=== PATIENT | female | born 1930 | race Caucasian/White ===

== ENCOUNTER 2016-10-12 10:59 | Emergency (ER) | payer MEDICARE ==
[~2016-10-12] VITALS: Ht 167.6 cm; Wt 61.0 kg
[2016-10-12 11:39] LABS: BASOPHILS % (AUTO) 1 % (0-2); EOSINOPHILS # (AUTO) 0.1 10^3uL; EOSINOPHILS % (AUTO) 2 % (0-4); LYMPHOCYTES # (AUTO) 1.3 X10^3; MEAN CORPUSCULAR HEMOGLOBIN 29.9 PG (26.0-34.0); MEAN CORPUSCULAR HGB CONC 33.2 g/dL (31.0-37.0); MEAN CORPUSCULAR VOLUME 90 FL (80-100); MEAN PLATELET VOLUME 9.2 FL (6.0-9.5); MONOCYTES # (AUTO) 0.6 X10^3; MONOCYTES % (AUTO) 13 % (3-11); NEUTROPHILS # (AUTO) 2.3 X10^3; NEUTROPHILS % (AUTO) 54 % (51-67); PLATELET COUNT 264 10^3uL (150-450); WHITE BLOOD COUNT 4.31 10^3uL (4.0-11.0)
[2016-10-12 11:56] LABS: ALBUMIN 3.5 g/dL (3.4-5.0); ANION GAP 10.1 MEQ/L (3-15); CALCULATED IONIZED CALCIUM 3.8 mg/dL (3.8-4.6); TOTAL PROTEIN 7.4 g/dL (6.4-8.5)
[2016-10-12 12:03] LABS: INFLUENZA VIRUS TYPE A ANTIBOD Negative (NEGATIVE); INFLUENZA VIRUS TYPE B ANTIBOD Negative (NEGATIVE)
[2016-10-12 12:32] LABS: BILIRUBIN,URINE Negative (Negative); CLARITY,URINE Clear; COLOR,URINE Yellow; GLUCOSE, URINE (UA) Negative (Negative); LEUKOCYTE ESTERASE ,URINE Trace (Negative); PH,URINE 7.5 (5.0 - 8.0); UROBILINOGEN,URINE 0.2 mg/dL (0.2-1.0)
[2016-10-12 12:50] LABS: AMPHETAMINE SCREEN, URINE Negative (Negative); CANNABINOID SCREEN, URINE Negative (Negative); METHAMPHETAMINE SCREEN URINE S NEGATIVE (NEGATIVE); OPIATE SCREEN URINE Negative (Negative); RBC,URINE None Seen /HPF; URINE CENTRIFUGED VOLUME 12 mL
[2016-10-12 12:51] LABS: PROPOXYPHENE STAT NEGATIVE (NEGATIVE)
[2016-10-12 13:22] VITALS: BP 174/67
== END 2016-10-12 13:25 | disposition home or self-care (01) ==
LOC: EDUNIT# 10:59 → ED 11:01
DX: J44.1 Chronic obstructive pulmonary disease with (acute) exacerbation (principal); L89.159 Pressure ulcer of sacral region, unspecified stage; I11.0 Hypertensive heart disease with heart failure; I50.9 Heart failure, unspecified; R82.99 Other abnormal findings in urine
CPT/HCPCS: 36415; 71010; 80053; 81003; 81015; 82803; 83605; 83880; 84443; 84484; 85025; 85610; 86140; 87088; 87502; 93005; 99284; G0478; 80307; 93010; 99285

== ENCOUNTER → 2016-10-12 | Outpatient (CLI) | payer MEDICARE | LOC: EMS 10:45 | PROVIDERS: ATTEND Family Medicine | DX: R06.00 Dyspnea, unspecified (principal) ==

== ENCOUNTER 2016-10-13 16:22 | Inpatient (IN) | payer MEDICARE ==
[~2016-10-13] VITALS: Ht 167.6 cm; Wt 64.1 kg
[2016-10-13 16:30] VITALS: BP 186/62
--- NOTE | 2016-10-13 16:30 | NUR ---
Pt admitted to 315 via w/c accompanied by Alvaro Wilcox, RUMA and friend. Skin warm, dry, intact. Resprs labored, even on RA. Sats upon arrival 92% on RA. 2L NC placed per Dr Whelan for comfort. See admission database for assessment info.
[2016-10-13] MEDS ORDERED: ONDANSETRON 4 MG (ZOFRAN) ORAL DISSOLVE TAB PO PRN (16:55)
[2016-10-13] MEDS ORDERED: MAGNESIUM HYDROXIDE 80MG/ML (MILK OF MAGNESIA) 30 ML UDC PO PRN (16:55)
[2016-10-13] MEDS ORDERED: POLYETHYLENE GLYCOL 17 GM (MIRALAX) PACKET PO PRN ×2 (16:55→18:30)
[2016-10-13] MEDS ORDERED: cefTRIAXone 1 GM (ROCEPHIN) VIAL IM SCH (17:00)
[2016-10-13] MEDS ORDERED: ALBUTEROL 0.083% NEB SOLUTION 2.5 MG/3 ML VIAL INH PRN (17:00)
[2016-10-13 17:23] LABS: MEAN CORPUSCULAR HEMOGLOBIN 30.4 PG (26.0-34.0); MEAN CORPUSCULAR HGB CONC 33.1 g/dL (31.0-37.0); MEAN CORPUSCULAR VOLUME 92 FL (80-100); MEAN PLATELET VOLUME 8.9 FL (6.0-9.5); PLATELET COUNT 292 10^3uL (150-450); WHITE BLOOD COUNT 7.78 10^3uL (4.0-11.0)
[2016-10-13] MEDS ORDERED: LIDOCAINE PF 1% (XYLOCAINE) 2 ML VIAL INJ PRN (17:30)
[2016-10-13] MEDS ORDERED: cefTRIAXone SODIUM 1,000 MG in SODIUM CHLORIDE 50 ML IV SCH ×2 (17:30→18:50)
[2016-10-13 17:36] LABS: BAND NEUTROPHILS % 1 % (0-6); EOSINOPHILS % 1 % (0-4); LYMPHOCYTES # 0.7 #; MONOCYTES # 0.5 #; MONOCYTES % 7 % (3-11); RBC MORPH NORMAL (NORMAL); SEGMENTED NEUTROPHILS % 82 % (51-67); TOTAL CELLS COUNTED 100
[2016-10-13 17:39] LABS: MAGNESIUM* 1.9 mg/dL (1.6-2.3); PHOSPHORUS 3.6 mg/dL (2.4-4.9)
[2016-10-13] MEDS: ALBUTEROL/IPRATROPIUM 3MG-0.5MG/3ML (DUONEB) NEB VIAL INH SCH ×2 (17:39→23:17)
--- NOTE | 2016-10-13 17:48 | NUR ---
Medication history completed using Dr. Ulloa's clinic records and pharmacy dispensing records.
[2016-10-13] MEDS ORDERED: SODIUM CHLORIDE FLUSH 3 ML SYR IV SCH (17:50)
--- NOTE | 2016-10-13 18:45 | NUR ---
Pt sitting in bed playing [employer] at this time. O2 4L NC for comfort. 24g in LH initiated by Hank Weiner RN on 3rd attempt, but IV infiltrated prior to medication administration. Dr Whelan initiated a 22g in L wrist on first attempt. Solu Medrol administered with no difficulty. Pt continues to endorse SOA, denies pain. Denies needs at this time.
[2016-10-13] MEDS: methylPREDNISolone 125 MG (Solu-MEDROL) VIAL IV SCH ×2 (18:47→23:55)
[2016-10-13 18:57] VITALS: BP 186/62
[2016-10-13] MEDS ORDERED: cefTRIAXone 1 GM (ROCEPHIN) VIAL ONE (19:39)
[2016-10-13] MEDS ORDERED: SODIUM CHLORIDE 50 ML IV ONE (19:39)
[2016-10-13 20:12] LABS: ALBUMIN 3.3 g/dL (3.4-5.0); ANION GAP 15.8 MEQ/L (3-15); CALCULATED IONIZED CALCIUM 3.9 mg/dL (3.8-4.6); TOTAL PROTEIN 7.1 g/dL (6.4-8.5)
[2016-10-13 20:29] VITALS: BP 147/52
[2016-10-13] MEDS ORDERED: risperiDONE 1 MG (RisperDAL) TAB ONE (20:36)
[2016-10-13] MEDS ORDERED: WATER, FOR IRRIGATION 1000 ML POUR BOTTLE ONE (20:36)
[2016-10-13] MEDS ORDERED: RISPERIDONE 0.5 MG PO SCH (21:00)
[2016-10-13] MEDS: HEPARIN 5000 UNIT/0.5 ML SYRINGE SC SCH (21:06)
[2016-10-13] MEDS: D5 1/2 NS IV 1,000 ML IV SCH (21:47)
--- NOTE | 2016-10-13 23:19 | NUR ---
Pt awakened in bed, She is on 3 l/min NC, SPO2 99%, HR 111 RR 15 with clear BS. Duoneb given via SVN tolerated well with no change in BS post Tx. O2 titrated to 2 l/min NC.
[2016-10-14 00:41] VITALS: BP 145/52
[2016-10-14] MEDS: ALBUTEROL/IPRATROPIUM 3MG-0.5MG/3ML (DUONEB) NEB VIAL INH SCH ×4 (05:10→22:53)
--- NOTE | 2016-10-14 05:14 | NUR ---
Pt found lying in bed on 2 l/min NC, SPO2 99%, HR 91, RR 16 and non labored with essentially clear BS before and after Duoneb via SVN which was tolerated well.
--- NOTE | 2016-10-14 05:15 | NUR ---
O2 titrated to 1 l/min NC
[2016-10-14] MEDS: HEPARIN 5000 UNIT/0.5 ML SYRINGE SC SCH ×3 (06:07→21:42)
[2016-10-14] MEDS: methylPREDNISolone 125 MG (Solu-MEDROL) VIAL IV SCH ×3 (06:07→17:18)
[2016-10-14] MEDS: LEVOTHYROXINE 100 MCG (LEVOTHROID) TABLET PO SCH (06:07)
[2016-10-14 06:31] VITALS: BP 155/71
--- NOTE | 2016-10-14 06:43 | NUR ---
Pt rests well throughout the night. Denies complaints of pain. Oxygen titrated per RT Donavon. Currently on 1L per nc. IVF infusing w/o difficulty. Up with staff assist x1 and walker.
[2016-10-14] MEDS ORDERED: PANTOPRAZOLE 40 MG (PROTONIX) TAB PO SCH (07:00)
[2016-10-14 07:07] LABS: ALBUMIN 3.4 g/dL (3.4-5.0); ANION GAP 16.4 MEQ/L (3-15); CALCULATED IONIZED CALCIUM 3.7 mg/dL (3.8-4.6); TOTAL PROTEIN 7.6 g/dL (6.4-8.5)
--- NOTE | 2016-10-14 07:18 | NUR ---
Noted that pt's heart rate on cont pulse ox is 70-140s. Irregular apically. Pt denies chest pain or palpitations. Dr Wu notified; orders for tele received.
[2016-10-14] MEDS ORDERED: cefTRIAXone SODIUM 1,000 MG in SODIUM CHLORIDE 50 ML IV SCH (07:41)
[2016-10-14] MEDS ORDERED: NS FLUSH 3 ML PRN IV (07:45)
[2016-10-14] MEDS ORDERED: NS FLUSH 10 ML PRN IV (07:45)
[2016-10-14 07:54] VITALS: BP 105/63
[2016-10-14] MEDS ORDERED: risperiDONE 1 MG (RisperDAL) TAB PO SCH (08:20)
[2016-10-14] MEDS ORDERED: FUROSEMIDE 20 MG (LASIX) TAB PO SCH (09:00)
[2016-10-14] MEDS: PANTOPRAZOLE IV 40 MG in SODIUM CHLORIDE FLUSH 10 ML IV SCH (09:09)
[2016-10-14] MEDS: ASCORBIC ACID 500 MG (VITAMIN C) TABLET PO SCH (09:11)
[2016-10-14] MEDS: CHOLECALCIFEROL 1000 INT UNITS (VITAMIN D3) TABLET PO SCH (09:11)
[2016-10-14] MEDS: FLUoxetine 20 MG (PROzac) CAPSULE PO SCH (09:11)
[2016-10-14] MEDS: LOSARTAN 100 MG (COZAAR) TABLET PO SCH (09:11)
[2016-10-14] MEDS: ASPIRIN 81 MG CHEW (CHILDREN'S ASA) PO SCH (09:11)
[2016-10-14] MEDS: GLUCOSAMINE/CHONDROITIN 500MG-400MG CAPSULE PO SCH ×3 (09:12→18:07)
[2016-10-14] MEDS: CALCIUM CITRATE/VITAMIN D3 315MG/250IU (CALCITRATE +D) TABLET PO SCH (09:12)
[2016-10-14] MEDS: VITAMIN E PO SCH (09:12)
[2016-10-14] MEDS: NS FLUSH 3 ML DAILY IV SCH (09:12)
--- NOTE | 2016-10-14 09:20 | NUR ---
Pt remains on 1L nc. Denies n/v or abd pain. No SOA. Is lying in bed- refuses to try anything except ice chips PO.
--- NOTE | 2016-10-14 09:40 | NUR ---
NUTRITION ASSESSMENT Level 1 Patient: Juliet Santos Age/Sex: 86/F Date Screened: 10-14-16 Weight: 137#/62.3 kg Height: 66 inches Primary Diagnosis: acute-on chronic respiratory failure Diet Order: none ordered (usually G-tube) Relevant labs: glucose 203, TSH 0.64 Food allergies: N Nutrition Assessment Criteria Age over 80: 4 points Body Mass Index (BMI) under 19: N Admission Screening Indicates Risk? 3 points Moderate/High Risk Diagnosis: 3 points TPN or PPN: N NPO or clear liquid diet: Yes Serum Glucose <70 or >180: 3 points Hgb A1c >6.7: N/A Total: 13 points Risk Screen: __ Patient at low nutritional risk based on available data; reevaluate in 5-7 days __ Patient at moderate nutritional risk based on available data; reevaluate in 3-5 days _X_ Patient at high nutritional risk; complete Nutrition Assessment within 48 hours of admission.
--- NOTE | 2016-10-14 10:41 | NUR ---
NUTRITION ASSESSMENT Level II Patient: Juliet Santos Age/Sex: 86/F Date Assessed: 10-14-16 ASSESSMENT Pertinent History: Patient admitted with acute-on chronic respiratory failure and screened at high nutritional risk secondary to diagnosis, elderly age, elevated glucose and existing G-tube for severe dysphagia. PMHx includes COPD, depression, HTN, hypothyroidism, recurrent aspiration pneumonia, Hamilton's esophagus, CHF and GERD. There is no documentation of when her PEG tube was placed, but it was sometime between November and March,. It was not at this facility, and PCPs office did not have any records of it. Pt. lives at home and receives home health, who also administers her tube feedings. Pt. stated she tries sometimes to swallow things but is unable to. She receives 100% of her nutritional needs and medication administration via the tube. Per nurse at [facility], pt.s tube feeding order is for "3 cans Isosource/day plus 50 cc water flushes, but she gets more than that because she likes her water." Nurse reported that pt. is unable to tolerate more than 1 can at a time or she gets nauseous. Apparently her actual order is for 1 cans BID but staff changed it to 1 can TID due to tolerance. Weight has been stable over the past 4 months; pt. weighed 139.9# in 2015 and 140# in November 2015. She does have a history of significant unintentional weight loss over the prior year due to dysphagia. Meds/Nutrition: Protonix, vitamin E, vitamin D, vitamin C, Synthroid, D5 NS, Solumedrol Weight: 137#/62.3 kg Height: 66 inches Body Mass Index (BMI): 22.2 [place] Body Weight : 130#/59 kg % IBW: 105% GASTROINTESTINAL Appetite: N/A Diet Order: none ordered currently Unintentional loss of >10 lbs. in 3 months: N Difficult to chew/swallow: Yes Diabetes: N Relevant Labs: glucose 203, TSH 0.64 Calculations for Nutritional Assessment Estimated calorie needs: 25-28 kcals/kg = 1,550-1,730 kcals Estimated protein needs: 1.0-1.1 g/kg = 62-68 g./day DIAGNOSIS 1. Nutrition Diagnosis: Inability to take p.o. nutrition related to dysphagia as evidenced by hx. unintentional weight loss with inability to swallow effectively prior to PEG tube placement. 2. Nutrition Diagnosis: Altered nutrition-related lab values (glucose) related to possibly medication as evidenced by glucose 203 without diagnosis of diabetes and on steroids. NUTRITIONAL INTERVENTION Goal: Patient will receive adequate nutrition to meet her needs via PEG tube. Plan: Patients usual tube feeding order for Isosource 1.5 (3 cans = 720 ml) = 1,080 kcals, 49 g. protein and 560 ml water. We do not have Isosource in stock, therefore recommend Jevity 1.5 for equivalent calories. Jevity 1.5 with 240 ml bolus TID will provide 1,080 kcals, 46 g. protein and 548 ml water. Additional water flush needed is 530 ml/day, divided into flushes before-and after each feeding and medication administration per tube feeding protocol. Of note, this calorie and protein amount is lower than her calculated energy needs, but because her weight has been stable, I don't see any reason to change it at this time. Pt. should be monitored on an outpatient basis to adjust tube feeding order as needed over the long-term. MONITORING & EVALUATION __ Monitor patients menu selections __ Monitor patients food intake per nursing notes __ Monitor NPO/clear liquid days _X_ Monitor lab values _X_ Monitor I&O _X_ Other--monitor tube feeding volume and tolerance
--- NOTE | 2016-10-14 11:00 | NUR ---
Pt up to chair with assist of 1. Watching tv. IVF infusing as ordered. No needs at this time.
--- NOTE | 2016-10-14 11:30 | NUR ---
98% on 1L nc, HR 40-80. Pt. states feeling OK today, still a little SOA. No cough.
[2016-10-14 11:35] VITALS: BP 162/56
--- NOTE | 2016-10-14 12:45 | NUR ---
Jevity 1.2cal/ml 250 Addendum: 10/14/16 at 1418 by Courtney Herrera RN correction- Jevity 1.2cal/ml 240ml tube feed administered via gravity. Flushed before/after feed with 50ml water. Pt tolerated without difficulty.
[2016-10-14 16:12] VITALS: BP 160/48
[2016-10-14] MEDS: D5 1/2 NS IV 1,000 ML IV SCH (17:17)
[2016-10-14] MEDS: DOXYCYCLINE 100 MG (VIBRAMYCIN) TABLET PO SCH (18:07)
[2016-10-14 19:53] VITALS: BP 153/55
--- NOTE | 2016-10-14 20:06 | NUR ---
Pt is sitting up in recliner watching tv, alert and oriented x4, Resp are even and nonlabored, LCTAB, running A-Fib with PVC's on telemetry, BS are active x 4 quadrants. Pt is NPO except for ice chips, is not happy about this, but aspirates on food and liquid. Pt does have Peg tube that she receives feedings and medications through. Pt denies pain or discomfort at this time. IV is infusing without difficulty, no redness, swelling, or s/s of infection noted at this time. Call light is in reach, will continue to monitor.
--- NOTE | 2016-10-14 22:55 | NUR ---
Pt found lying in bed on 1 l/min NC, SPO2 97%, HR 85, RR 18 and non labored at this time. BS have fine crackles in all lung [place] before and after Duoneb via SVN.
[2016-10-15 00:02] VITALS: BP 153/52
[2016-10-15] MEDS: LORazepam 2 MG/ML (ATIVAN) 1 ML VIAL IV PRN ×2 (00:49→21:13)
[2016-10-15 04:24] VITALS: BP 183/88
--- NOTE | 2016-10-15 04:37 | NUR ---
0030-Pt is anxious and complaining of SOA, notified RT. RT contacted Dr. Wu and requested an order for Ativan. See new order. 0049-Gave Ativan 0.5mg SIVP for anxiety. 0140-Pt is resting in recliner asleep, will continue to monitor. 0415-Pt is up to restroom, and assisted into bed, call light is in reach, will continue to monitor.
[2016-10-15] MEDS: LEVOTHYROXINE 100 MCG (LEVOTHROID) TABLET PO SCH (05:34)
[2016-10-15] MEDS: HEPARIN 5000 UNIT/0.5 ML SYRINGE SC SCH ×2 (05:34→13:41)
[2016-10-15] MEDS: DOXYCYCLINE 100 MG (VIBRAMYCIN) TABLET PO SCH ×2 (05:34→18:24)
[2016-10-15] MEDS: ALBUTEROL/IPRATROPIUM 3MG-0.5MG/3ML (DUONEB) NEB VIAL INH SCH ×4 (05:43→21:10)
--- NOTE | 2016-10-15 05:46 | NUR ---
Pt found lying in bed on 1 l/min NC, SPO2 98%, HR 91, RR 18 and non labored with clear BS before and after Duoneb via SVN which was tolerated well. O2 titrated to RA.
--- NOTE | 2016-10-15 07:48 | NUR ---
Pt resting in bed, resp even, nonlab. Cont pulse ox remains intact- O2 sats 98% 1L nc, HR 70s- Tele in place as ordered. IVF infusing at 50ml/hr as ordered. Call light within reach.
[2016-10-15 08:00] VITALS: BP 142/66
[2016-10-15] MEDS ORDERED: predniSONE 20 MG (DELTASONE) TABLET PO SCH (08:00)
[2016-10-15] MEDS: PANTOPRAZOLE IV 40 MG in SODIUM CHLORIDE FLUSH 10 ML IV SCH (08:40)
[2016-10-15] MEDS: FLUoxetine 20 MG (PROzac) CAPSULE PO SCH (08:41)
[2016-10-15] MEDS: GLUCOSAMINE/CHONDROITIN 500MG-400MG CAPSULE PO SCH ×3 (08:41→17:25)
[2016-10-15] MEDS: ASCORBIC ACID 500 MG (VITAMIN C) TABLET PO SCH (08:41)
[2016-10-15] MEDS: CHOLECALCIFEROL 1000 INT UNITS (VITAMIN D3) TABLET PO SCH (08:41)
[2016-10-15] MEDS: NS FLUSH 3 ML DAILY IV SCH (08:42)
[2016-10-15] MEDS: LOSARTAN 100 MG (COZAAR) TABLET PO SCH (08:42)
[2016-10-15] MEDS: VITAMIN E PO SCH (08:42)
[2016-10-15] MEDS: ASPIRIN 81 MG CHEW (CHILDREN'S ASA) PO SCH (08:42)
[2016-10-15] MEDS: CALCIUM CITRATE/VITAMIN D3 315MG/250IU (CALCITRATE +D) TABLET PO SCH (08:42)
--- NOTE | 2016-10-15 08:50 | NUR ---
Dr. Ulloa at bedside. Pt asks Dr. Ulloa "why is my oxygen so bad?" Dr. Ulloa explained "well, your food is going to your lungs." After Dr. Ulloa left room, this nurse explained aspiration to patient. She looks forward, shaking her head and rolls her eyes. States "well I don't know what I'm supposed to do." Explained again about tube feedings giving nutrients. Pt has no interest at this time- turns volume back up on tv and continues watching show.
[2016-10-15 11:44] VITALS: BP 176/70
[2016-10-15] MEDS: D5 1/2 NS IV 1,000 ML IV SCH (13:51)
--- NOTE | 2016-10-15 15:40 | NUR ---
Dr. Nicholas at bedside.
[2016-10-15] MEDS ORDERED: POLYETHYLENE GLYCOL 17 GM (MIRALAX) PACKET GT PRN (17:08)
[2016-10-15] MEDS ORDERED: MAGNESIUM HYDROXIDE 80MG/ML (MILK OF MAGNESIA) 30 ML UDC GT PRN (17:08)
[2016-10-15] MEDS: guaiFENesin SYRUP 200 MG/10 ML (ROBITUSSIN) UDC GT SCH ×2 (17:25→21:12)
[2016-10-15] MEDS ORDERED: WATER, FOR IRRIGATION 1000 ML POUR BOTTLE ONE (17:26)
--- NOTE | 2016-10-15 17:51 | NUR ---
Pt sitting upright in chair, watching tv and reading newspaper. Meds given per GT without difficulty. Call appropriately for assist.
--- NOTE | 2016-10-15 19:35 | NUR ---
Pt is sitting up in bed visiting with family, alert and oriented x 4, Resp are even and nonlabored, LCTAB, running a-fib on telemetry at this time, BS are active x 4 quadrants. Continues to have PEG tube and receives Jevity 1.2 marina TID, remains NPO except for ice chips. Continues on 1LPM of O2 to keep sats greater than 90%. IV is infusing without difficulty, no redness, swelling, or s/s of infection noted at this time. Denies pain or discomfort, call light in reach, will continue to monitor.
[2016-10-15 20:09] VITALS: BP 166/58
[2016-10-15] MEDS ORDERED: guaiFENesin ER 600 MG (MUCINEX) TAB PO SCH (21:00)
[2016-10-15] MEDS: risperiDONE 1 MG (RisperDAL) TAB GT SCH (21:12)
[2016-10-16 00:20] VITALS: BP 169/61
[2016-10-16] MEDS: ALBUTEROL/IPRATROPIUM 3MG-0.5MG/3ML (DUONEB) NEB VIAL INH SCH ×4 (03:27→19:57)
--- NOTE | 2016-10-16 04:20 | NUR ---
Pt is resting in bed asleep, received PRN Ativan 0.5mg SIVP for anxiety at 2111, pt also received breathing treatment at this time. Pt reports she never had anxiety before, but she just gets so worked up. This RN stayed in room and visited with her until she was calm. Call light is in reach, will continue to monitor.
[2016-10-16] MEDS ORDERED: D5 1/2 NS IV 1,000 ML IV ONE (05:33)
[2016-10-16] MEDS: DOXYCYCLINE 100 MG (VIBRAMYCIN) TABLET PO SCH ×2 (05:37→19:29)
[2016-10-16] MEDS: guaiFENesin SYRUP 200 MG/10 ML (ROBITUSSIN) UDC GT SCH ×4 (05:38→23:47)
[2016-10-16] MEDS: LEVOTHYROXINE 100 MCG (LEVOTHROID) TABLET GT SCH (05:38)
[2016-10-16 06:24] LABS: BASOPHILS % (AUTO) 0 % (0-2); EOSINOPHILS % (AUTO) 0 % (0-4); LYMPHOCYTES # (AUTO) 0.9 X10^3; MEAN CORPUSCULAR HEMOGLOBIN 29.8 PG (26.0-34.0); MEAN CORPUSCULAR VOLUME 90 FL (80-100); MEAN PLATELET VOLUME 9.2 FL (6.0-9.5); MONOCYTES # (AUTO) 1.2 X10^3; MONOCYTES % (AUTO) 13 % (3-11); NEUTROPHILS # (AUTO) 7.3 X10^3; NEUTROPHILS % (AUTO) 77 % (51-67); PLATELET COUNT 398 10^3uL (150-450); WHITE BLOOD COUNT 9.42 10^3uL (4.0-11.0)
[2016-10-16 08:34] VITALS: BP 184/62
[2016-10-16] MEDS: VITAMIN E PO SCH (09:00)
[2016-10-16] MEDS: NS FLUSH 3 ML DAILY IV SCH (09:00)
[2016-10-16] MEDS: CALCIUM CITRATE/VITAMIN D3 315MG/250IU (CALCITRATE +D) TABLET PO SCH (09:13)
[2016-10-16] MEDS: FLUoxetine 20 MG (PROzac) CAPSULE GT SCH (09:13)
[2016-10-16] MEDS: GLUCOSAMINE/CHONDROITIN 500MG-400MG CAPSULE PO SCH ×3 (09:13→19:29)
[2016-10-16] MEDS: LOSARTAN 100 MG (COZAAR) TABLET GT SCH (09:13)
[2016-10-16] MEDS: CHOLECALCIFEROL 1000 INT UNITS (VITAMIN D3) TABLET GT SCH (09:14)
[2016-10-16] MEDS: ASPIRIN 81 MG CHEW (CHILDREN'S ASA) GT SCH (09:14)
[2016-10-16] MEDS: FUROSEMIDE 20 MG (LASIX) TAB GT SCH (09:15)
[2016-10-16] MEDS: ASCORBIC ACID 500 MG (VITAMIN C) TABLET GT SCH (09:15)
[2016-10-16] MEDS: predniSONE 20 MG (DELTASONE) TABLET GT SCH (09:15)
[2016-10-16] MEDS: PANTOPRAZOLE IV 40 MG in SODIUM CHLORIDE FLUSH 10 ML IV SCH (09:31)
[2016-10-16] MEDS: ENOXAPARIN 30 MG/0.3 ML (LOVENOX) SYR SC SCH (09:44)
[2016-10-16] MEDS ORDERED: POTASSIUM CHLORIDE ORAL SOLUTION 20 MEQ/15 ML (KCL) UDC PO SCH (10:00)
--- NOTE | 2016-10-16 10:16 | NUR ---
Pt found at 80% on RA. 2L NC placed back on. Will continue to monitor.
[2016-10-16] MEDS: OMEPRAZOLE 20 MG/10 ML GT SCH (11:00)
--- NOTE | 2016-10-16 13:22 | NUR ---
Nutrition Follow Up: Patient has been receiving Jevity 1.2 since 10-14-16 due to the hospital not having Jevity 1.5 in-stock. The Jevity 1.5 came in this morning. Pt. has been tolerating feedings with 0 gastric residuals. Discussed with RN--apparently pt. tried eating something last night and aspirated the entire thing, even though she verbalized to me two days ago that she "can't eat because she can't swallow." She refused to take a p.o. pill for nursing this morning and stated she "can't swallow it." Weight today: 140.8#/64 kg--this is up 3.8# since admission Labs: potassium 3.4, glucose 95 1. Continue tube-feeding as ordered with Jevity 1.5, 240 ml TID with water flush as specified. 2. Strongly recommend pt. be strictly NPO, including with meds, for her safety. Pharmacy may be needed to help identify which meds are appropriate to crush through the tube and if alternatives are necessary.
--- NOTE | 2016-10-16 14:20 | NUR ---
Pt. has been accepted to [facility] for skilled care. Possibly discharge tomorrow. Addendum: 10/16/16 at 1539 by Viviana GUTIERREZ Upon discharge Pt. will go to House [address] at [facility]. Ext. [phone].
[2016-10-16 16:34] VITALS: BP 140/52
--- NOTE | 2016-10-16 18:06 | NUR ---
Pt rests in bed this shift, up with SBA and walker to restroom. Pt tolerated 1400 tube feeding well. Skin warm, dry, intact. Resprs nonlabored, even on 1L NC. Pt denies pain or SOA. Call light within reach. Denies needs.
[2016-10-16 19:48] VITALS: BP 180/60
--- NOTE | 2016-10-16 20:00 | NUR ---
Pt sitting up in bed, tolerated tx well. SPO2 98% on 1L, took pt to room air, RN notified.
[2016-10-16] MEDS: POTASSIUM CHLORIDE ORAL SOLUTION 20 MEQ/15 ML (KCL) UDC GT SCH (20:56)
[2016-10-16] MEDS: LORazepam 2 MG/ML (ATIVAN) 1 ML VIAL IV PRN (20:56)
[2016-10-16] MEDS: risperiDONE 1 MG (RisperDAL) TAB GT SCH (20:56)
[2016-10-17 00:04] VITALS: BP 152/72
[2016-10-17] MEDS: ALBUTEROL/IPRATROPIUM 3MG-0.5MG/3ML (DUONEB) NEB VIAL INH SCH ×2 (01:36→07:41)
[2016-10-17] MEDS ORDERED: WATER, FOR IRRIGATION 1000 ML POUR BOTTLE ONE (05:12)
[2016-10-17] MEDS: LORazepam 2 MG/ML (ATIVAN) 1 ML VIAL IV PRN (05:24)
[2016-10-17] MEDS: guaiFENesin SYRUP 200 MG/10 ML (ROBITUSSIN) UDC GT SCH (05:48)
[2016-10-17] MEDS: OMEPRAZOLE 20 MG/10 ML GT SCH (05:49)
[2016-10-17] MEDS: LEVOTHYROXINE 100 MCG (LEVOTHROID) TABLET GT SCH (05:49)
[2016-10-17] MEDS: DOXYCYCLINE 100 MG (VIBRAMYCIN) TABLET PO SCH (06:04)
--- NOTE | 2016-10-17 06:18 | NUR ---
Pt extremely anxious at start of shift. Oxygen replaced at 1L for patient comfort. Ativan provided this shift x2; see MAR. SL intact. Pt tolerates tube feeding well.
[2016-10-17 06:45] LABS: ANION GAP 10.8 MEQ/L (3-15); MAGNESIUM* 1.9 mg/dL (1.6-2.3); PHOSPHORUS 2.9 mg/dL (2.4-4.9)
--- NOTE | 2016-10-17 07:43 | NUR ---
Pt found luing in bed asleep on 1 l/min NC, SPOI2 Addendum: 10/17/16 at 0745 by Yuan Santos RT SPO2 96%, HR 83 , RR 14 and non labored with clear BS before and after Duoneb via SVN
[2016-10-17 08:15] VITALS: BP 182/67
[2016-10-17] MEDS: VITAMIN E PO SCH (09:00)
[2016-10-17] MEDS: PANTOPRAZOLE IV 40 MG in SODIUM CHLORIDE FLUSH 10 ML IV SCH (09:00)
[2016-10-17] MEDS: POTASSIUM CHLORIDE ORAL SOLUTION 20 MEQ/15 ML (KCL) UDC GT SCH (09:01)
[2016-10-17] MEDS: LOSARTAN 100 MG (COZAAR) TABLET GT SCH (09:02)
[2016-10-17] MEDS: predniSONE 20 MG (DELTASONE) TABLET GT SCH (09:02)
[2016-10-17] MEDS: FUROSEMIDE 20 MG (LASIX) TAB GT SCH (09:02)
[2016-10-17] MEDS: CALCIUM CITRATE/VITAMIN D3 315MG/250IU (CALCITRATE +D) TABLET PO SCH (09:02)
[2016-10-17] MEDS: CHOLECALCIFEROL 1000 INT UNITS (VITAMIN D3) TABLET GT SCH (09:03)
[2016-10-17] MEDS: ASPIRIN 81 MG CHEW (CHILDREN'S ASA) GT SCH (09:03)
[2016-10-17] MEDS: ASCORBIC ACID 500 MG (VITAMIN C) TABLET GT SCH (09:03)
[2016-10-17] MEDS: FLUoxetine 20 MG (PROzac) CAPSULE GT SCH (09:06)
[2016-10-17] MEDS: GLUCOSAMINE/CHONDROITIN 500MG-400MG CAPSULE PO SCH (09:06)
[2016-10-17] MEDS: ENOXAPARIN 30 MG/0.3 ML (LOVENOX) SYR SC SCH (09:29)
[2016-10-17] MEDS: NS FLUSH 3 ML DAILY IV SCH (09:39)
--- NOTE | 2016-10-17 12:07 | NUR ---
Report called to RUMA Santos at [facility]. Belongings gathered. Pt changed into home clothes. SL removed with catheter tip intact. Pt continues on 1L NC. Pt expresses anxiety about going to [facility] as it is a new place. Encouragement provided.
--- NOTE | 2016-10-17 12:16 | NUR ---
pt dismissed to the [facility] per w/c with O2 with their staff Messi. Pt alert and coop. Skin warm and dry. resp nonlab. Belongings sent with pt.
[2016-10-17 12:18] VITALS: BP 197/73
== END 2016-10-17 12:17 | DRG 189 ==
LOC: MED/SURG 16:22 → OBSVTOIN 16:58
PROVIDERS: ADMIT Family Medicine; ATTEND Family Medicine
DX: J96.01 Acute respiratory failure with hypoxia (principal); J44.1 Chronic obstructive pulmonary disease with (acute) exacerbation; I11.0 Hypertensive heart disease with heart failure; I50.9 Heart failure, unspecified; I48.91 Unspecified atrial fibrillation; I08.3 Combined rheumatic disorders of mitral, aortic and tricuspid valves; R13.10 Dysphagia, unspecified; F95.8 Other tic disorders; F17.210 Nicotine dependence, cigarettes, uncomplicated; F41.9 Anxiety disorder, unspecified; Z93.1 Gastrostomy status
CPT/HCPCS: 36415; 71010; 80053; 80069; 82803; 83605; 83735; 83880; 84100; 84443; 85007; 85025; 85027; 86140; 87486; 87581; 87633; 87798; 93005; 94640; 94762

== ENCOUNTER → 2016-10-29 | Outpatient (CLI) | payer MEDICARE | LOC: RAD 09:12 | PROVIDERS: ATTEND Family Medicine | DX: J44.9 Chronic obstructive pulmonary disease, unspecified (principal) | CPT/HCPCS: 71020 ==

== ENCOUNTER 2016-11-01 11:29 | Emergency (ER) | payer MEDICARE ==
[~2016-11-01] VITALS: Ht 167.6 cm; Wt 63.6 kg
[2016-11-01] MEDS ORDERED: SODIUM CHLORIDE 250 ML IV PRN (11:50)
[2016-11-01] MEDS ORDERED: SODIUM CHLORIDE FLUSH 10 ML SYR IV PRN (11:50)
[2016-11-01] MEDS ORDERED: ALBUTEROL/IPRATROPIUM 3MG-0.5MG/3ML (DUONEB) NEB VIAL INH ONE (11:50)
[2016-11-01] MEDS ORDERED: SODIUM CHLORIDE FLUSH 3 ML SYR IV PRN (11:50)
[2016-11-01] MEDS ORDERED: methylPREDNISolone 125 MG (Solu-MEDROL) VIAL IV ONE (11:55)
[2016-11-01 12:23] LABS: BASOPHILS % (AUTO) 1 % (0-2); EOSINOPHILS # (AUTO) 0.1 10^3uL; EOSINOPHILS % (AUTO) 2 % (0-4); LYMPHOCYTES # (AUTO) 0.6 X10^3; MEAN CORPUSCULAR HEMOGLOBIN 30.1 PG (26.0-34.0); MEAN CORPUSCULAR HGB CONC 33.8 g/dL (31.0-37.0); MEAN CORPUSCULAR VOLUME 89 FL (80-100); MONOCYTES # (AUTO) 0.9 X10^3; MONOCYTES % (AUTO) 12 % (3-11); NEUTROPHILS # (AUTO) 5.8 X10^3; NEUTROPHILS % (AUTO) 78 % (51-67); PLATELET COUNT 325 10^3uL (150-450); WHITE BLOOD COUNT 7.44 10^3uL (4.0-11.0)
[2016-11-01 12:33] LABS: ALBUMIN 3.4 g/dL (3.4-5.0); ANION GAP 12.4 MEQ/L (3-15); CALCULATED IONIZED CALCIUM 3.9 mg/dL (3.8-4.6); TOTAL PROTEIN 6.8 g/dL (6.4-8.5)
[2016-11-01] MEDS ORDERED: LEVOFLOXACIN 500 MG/100 ML IV 100 ML IV ONE (14:55)
[2016-11-01] MEDS ORDERED: FUROSEMIDE 20 MG/2 ML (LASIX) VIAL IV ONE (15:20)
--- NOTE | 2016-11-01 15:20 | NUR ---
first iv site infiltrated, 2nd iv site started for levaquin and saline
[2016-11-01 15:40] VITALS: BP 199/76
--- NOTE | 2016-11-01 16:25 | NUR ---
called [facility]
--- NOTE | 2016-11-01 16:37 | NUR ---
tried calling [facility] x 2 with no response, left message on answering machine
--- NOTE | 2016-11-01 16:42 | NUR ---
did not give lasix until levaquin done, was scanned prior and decided to give it prior to her departure
== END 2016-11-01 16:50 | disposition home or self-care (01) ==
LOC: EDUNIT# 11:29 → ED 11:30
DX: J18.9 Pneumonia, unspecified organism (principal); I11.0 Hypertensive heart disease with heart failure; I50.9 Heart failure, unspecified; J44.9 Chronic obstructive pulmonary disease, unspecified; Z87.891 Personal history of nicotine dependence
CPT/HCPCS: 36415; 71010; 80053; 82550; 82553; 83735; 83880; 84484; 85025; 85610; 85730; 86140; 87070; 87205; 87486; 87581; 87633; 87798; 93005; 94640; 96361; 96365; 96375; 99285; J1940; J1956; J2930; J7050; 87077; 87186; 93010